=== PATIENT | male | born 1950 | race Caucasian/White ===

== ENCOUNTER 2018-10-28 09:05 | Emergency (ER) | payer MEDICARE, OTHER ==
[~2018-10-28] VITALS: Ht 175.3 cm; Wt 137.3 kg
[~2018-10-28 09:05] MED LIST: ADVIL200 MG PO; ASPIRIN 32325 MG/TAB PO; COZAAR 25MG25 MG/TAB PO; DOXYCYCLINE 10100 MG PO; GLUCOPHAGE500 MG/TAB PO; LANTUS100 U/ML SC; LEVAQUIN 5500 MG/TA1 PO; LORTAB 5/500 501 TAB PO; MOTRIN 200200 MG/TAB PO; NEURONTIN300 MG/CAP PO; NOVOLOG 100U100 U/M1 SC; TOPROL XL 50MG50 MG PO; UNABLE; ZYLOPRIM 300MG300 MG PO
[2018-10-28 09:39] LABS: COLLECTION METHOD CLEAN CATCH
[2018-10-28 09:59] LABS: BASO # 0.1 (0.0-0.2); BASO % 0.7 % (0.0-2.0); EOS # 0.2 (0.0-0.7); EOS % 2.1 % (0-4.0); GRAN # 7.6 (1.4-6.5); GRAN % 71.3 % (42.2-75.2); HEMATOCRIT 39.3 % (42.0-52.0); HEMOGLOBIN 13.6 g/dl (13.5-18.0); LYMPH % 18.5 % (20.0-51.0); MEAN CELL VOLUME 90 fl (80.0-100.0); MEAN CORPUSCULAR HEMOGLOBIN 31 pg (27.0-31.0); MEAN CORPUSCULAR HGB CONC 35 g/dl (33.0-37.0); MEAN PLATELET VOLUME 10.4 fl (7.4-10.4); MONO # 0.7 (0.1-0.6); PLATELET COUNT 213 K/mm3 (130-400); RED BLOOD COUNT 4.37 M/mm3 (4.20-5.60); REDCELL DISTRIBUTION WIDTH-CV 12.7 % (11.5-14.5)
[2018-10-28 09:59] LABS: PH 5 (5-8); URINE APPEARANCE Cloudy; URINE BACTERIA Rare /hpf; URINE BILIRUBIN Negative (NEGATIVE); URINE BLOOD 3+ (NEGATIVE); URINE COLOR Yellow; URINE GLUCOSE Negative (NEGATIVE); URINE KETONE Negative (NEGATIVE); URINE LEUKOCYTE ESTERASE 3+ (NEGATIVE); URINE NITRATE Positive (NEGATIVE); URINE PROTEIN(semi-quant) 2+ (NEGATIVE); URINE RBC >50 /hpf; URINE UROBILINOGEN Negative (NEGATIVE)
[2018-10-28 10:12] LABS: ALBUMIN 4.4 gm/dL (3.5-5.0); BILIRUBIN,TOTAL 0.4 mg/dL (0.0-1.0); C-REACTIVE PROTEIN 6.5 mg/dL (0.0-0.9); CALCIUM 9.8 mg/dL (8.4-10.2); CREATININE, serum 1.5 (0.66-1.25); TOTAL PROTEIN 7.8 gm/dL (6.4-8.2)
[2018-10-28] MEDS ORDERED: OMNICEF 300MG300 MG PO (11:20)
[2018-10-28] MEDS ORDERED: ZOFRAN 4MG T4 MG/TAB PO (11:27)
[2018-10-28 11:41] VITALS: BP 101/61; PULSE 69; TEMP 99
== END 2018-10-28 11:50 | disposition home or self-care (01) ==
LOC: COL.ER 09:05
PROVIDERS: Emergency Medicine
DX: N12 Tubulo-interstitial nephritis, not specified as acute or chronic (principal); E11.9 Type 2 diabetes mellitus without complications; I10 Essential (primary) hypertension; Z79.4 Long term (current) use of insulin
CPT/HCPCS: J0696; J1170; J1885; J2405; J7030; Q9967

== ENCOUNTER 2018-11-29 06:30 | Day surgery (SDC) | payer MEDICARE, OTHER ==
[~2018-11-29] VITALS: Ht 177.8 cm; Wt 136.1 kg
[~2018-11-29 06:30] MED LIST changes: +OMNICEF 300MG300 MG PO; +ZOFRAN 4MG T4 MG/TAB PO
[2018-11-29 06:56] VITALS: BP 134/80; PULSE 57; TEMP 97.6
[2018-11-29] MEDS ORDERED: NORVASC 5MG5 MG/TAB PO (07:16)
[2018-11-29] MEDS ORDERED: LOPRESSOR 225 MG/TAB PO (07:17)
[2018-11-29] MEDS ORDERED: PRAVACHOL80 MG PO (07:18)
[2018-11-29] MEDS ORDERED: MOTRIN 800800 MG/TAB PO (07:19)
[2018-11-29] MEDS ORDERED: COZAAR100 MG PO (07:21)
[2018-11-29] MEDS ORDERED: MULTI VITAMINS1 TAB PO (07:22)
[2018-11-29] MEDS ORDERED: BENADRYL25 M2 PO (07:23)
--- NOTE | 2018-11-29 07:47 | NUR ---
0745-DR. TEE IN ROOM DISCUSSING PROCEDURE. PT CONTINUES TO DENY QUESTIONS/CONCERNS. 0747-NURSE IN ROOM FOR PT, PT AMBULATES TO CART WITH NURSE.
[2018-11-29 08:55] VITALS: BP 134/82; PULSE 56
--- NOTE | 2018-11-29 08:55 | NUR ---
TO BAY3 PER CART FROM ENDOSCOPY. AMBULATED TO RECLINER WITH ASSIST AND TOLERATED WELL. ALERT ORIENTED X3, TALKING TO STAFF AND .
[2018-11-29 09:00] VITALS: BP 114/73; PULSE 58
--- NOTE | 2018-11-29 09:00 | NUR ---
DR TEE TALKED TO PRIOR TO PATIENT RETURNING TO . PATIENT RECEIVED OJ.
[2018-11-29 09:15] VITALS: BP 123/75; PULSE 55
--- NOTE | 2018-11-29 09:15 | NUR ---
DRANK 100% OF OJ. RECEIVED VANILLA PUDDING.
[2018-11-29 09:30] VITALS: BP 133/81; PULSE 53
--- NOTE | 2018-11-29 09:30 | NUR ---
ATE 100% AND TOLERATED WELL. RECEIVED DISCHARGE INSTRUCTIONS AND VERBALIZED UNDERSTANDING. AT BEDSIDE. DISCONTINUED IV AND INT- CATHETER INTACT.
[2018-11-29 09:45] VITALS: BP 128/81; PULSE 56
--- NOTE | 2018-11-29 09:45 | NUR ---
DISCHARGED PER WC BY NURSING STAFF TO PRIVATE CAR IN CARE OF -[facility].
== END 2018-11-29 09:59 | disposition home or self-care (01) ==
LOC: SDCO 06:30
DX: Z12.11 Encounter for screening for malignant neoplasm of colon (principal); D12.3 Benign neoplasm of transverse colon; D12.5 Benign neoplasm of sigmoid colon; K57.30 Diverticulosis of large intestine without perforation or abscess without bleeding; I10 Essential (primary) hypertension; E11.9 Type 2 diabetes mellitus without complications; E78.00 Pure hypercholesterolemia, unspecified; G47.33 Obstructive sleep apnea (adult) (pediatric); M19.90 Unspecified osteoarthritis, unspecified site; M10.9 Gout, unspecified; Z79.4 Long term (current) use of insulin; Z85.818 Personal history of malignant neoplasm of other sites of lip, oral cavity, and pharynx; Z96.653 Presence of artificial knee joint, bilateral; Z83.3 Family history of diabetes mellitus; Z88.8 Allergy status to other drugs, medicaments and biological substances; Z88.0 Allergy status to penicillin
CPT/HCPCS: OP; J2704; J7030

== ENCOUNTER 2019-04-08 06:46 | Emergency (ER) | payer MEDICARE, OTHER ==
[~2019-04-08] VITALS: Ht 175.3 cm; Wt 138.6 kg
[~2019-04-08 06:46] MED LIST changes: +BENADRYL25 M2 PO; +COZAAR100 MG PO; +LOPRESSOR 225 MG/TAB PO; +MOTRIN 800800 MG/TAB PO; +MULTI VITAMINS1 TAB PO; +NORVASC 5MG5 MG/TAB PO; +PRAVACHOL80 MG PO
[2019-04-08 07:19] VITALS: TEMP 98.4
[2019-04-08 08:13] LABS: COLLECTION METHOD CLEAN CATCH
[2019-04-08 08:19] LABS: BASO # 0.1 (0.0-0.2); BASO % 0.8 % (0.0-2.0); EOS # 0.3 (0.0-0.7); EOS % 2.3 % (0-4.0); GRAN # 8.9 (1.4-6.5); HEMATOCRIT 40.3 % (42.0-52.0); HEMOGLOBIN 13.6 g/dl (13.5-18.0); LYMPH # 3.1 (1.2-3.4); LYMPH % 23.3 % (20.0-51.0); MEAN CELL VOLUME 90 fl (80.0-100.0); MEAN CORPUSCULAR HEMOGLOBIN 30 pg (27.0-31.0); MEAN CORPUSCULAR HGB CONC 34 g/dl (33.0-37.0); MEAN PLATELET VOLUME 10.2 fl (7.4-10.4); MONO # 0.8 (0.1-0.6); MONO % 6.1 % (1.7-9.3); PLATELET COUNT 219 K/mm3 (130-400); RED BLOOD COUNT 4.48 M/mm3 (4.20-5.60); REDCELL DISTRIBUTION WIDTH-CV 13.1 % (11.5-14.5)
[2019-04-08 08:27] LABS: ALBUMIN 4.3 gm/dL (3.5-5.0); BILIRUBIN,TOTAL 0.5 mg/dL (0.0-1.0); CREATININE, serum 1.99 (0.66-1.25); TOTAL PROTEIN 7.5 gm/dL (6.4-8.2)
[2019-04-08 08:30] LABS: MUCOUS Present /lpf; PH 5 (5-8); SQUAMOUS EPITHELIAL None Seen /hpf; URINE APPEARANCE Cloudy; URINE BACTERIA Occasional /hpf; URINE BILIRUBIN Negative (NEGATIVE); URINE BLOOD 1+ (NEGATIVE); URINE COLOR Yellow; URINE GLUCOSE Negative (NEGATIVE); URINE KETONE Negative (NEGATIVE); URINE LEUKOCYTE ESTERASE 3+ (NEGATIVE); URINE NITRATE Negative (NEGATIVE); URINE PROTEIN(semi-quant) 1+ (NEGATIVE); URINE RBC 20-50 /hpf
[2019-04-08] MEDS ORDERED: CIPRO 500MG TA500 MG PO ×2 (08:56)
[2019-04-08] MEDS ORDERED: OMNICEF 300MG300 MG PO (09:00)
[2019-04-08 09:44] VITALS: BP 108/73; PULSE 64
== END 2019-04-08 09:44 | disposition home or self-care (01) ==
LOC: COL.ER 06:46
PROVIDERS: Emergency Medicine
DX: N12 Tubulo-interstitial nephritis, not specified as acute or chronic (principal); E11.9 Type 2 diabetes mellitus without complications; I10 Essential (primary) hypertension; E78.5 Hyperlipidemia, unspecified; M10.9 Gout, unspecified; Z87.442 Personal history of urinary calculi; Z79.4 Long term (current) use of insulin
CPT/HCPCS: J0696; J2270; J2405; J7030

== ENCOUNTER 2020-07-20 07:23 | Emergency (ER) | payer MEDICARE, OTHER ==
[~2020-07-20] VITALS: Ht 175.3 cm; Wt 136.4 kg
[~2020-07-20 07:23] MED LIST changes: +CIPRO 500MG TA500 MG PO
[2020-07-20 07:42] VITALS: TEMP 98.8
[2020-07-20 08:03] LABS: BASO # 0.1 (0.0-0.2); BASO % 0.4 % (0.0-2.0); EOS % 0.2 % (0-4.0); GRAN # 9.5 (1.4-6.5); GRAN % 83.2 % (42.2-75.2); HEMATOCRIT 41.3 % (42.0-52.0); HEMOGLOBIN 14.1 g/dl (13.5-18.0); LYMPH % 8.8 % (20.0-51.0); MEAN CELL VOLUME 90 fl (80.0-100.0); MEAN CORPUSCULAR HEMOGLOBIN 31 pg (27.0-31.0); MEAN CORPUSCULAR HGB CONC 34 g/dl (33.0-37.0); MEAN PLATELET VOLUME 10.3 fl (7.4-10.4); MONO # 0.8 (0.1-0.6); MONO % 6.9 % (1.7-9.3); PLATELET COUNT 185 K/mm3 (130-400); RED BLOOD COUNT 4.58 M/mm3 (4.20-5.60); REDCELL DISTRIBUTION WIDTH-CV 13.1 % (11.5-14.5)
[2020-07-20 08:29] LABS: ALBUMIN 4.3 gm/dL (3.5-5.0); BILIRUBIN,TOTAL 0.6 mg/dL (0.0-1.0); C-REACTIVE PROTEIN 6.3 mg/dL (0.0-0.9); CALCIUM 9.6 mg/dL (8.4-10.2); CREATININE, serum 1.73 (0.66-1.25); POTASSIUM 4.3 mmol/L (3.4-5.0); TOTAL PROTEIN 7.6 gm/dL (6.4-8.2)
[2020-07-20 09:46] LABS: COLLECTION METHOD CLEAN CATCH
[2020-07-20 09:54] LABS: MUCOUS Present /lpf; PH 5 (5-8); SQUAMOUS EPITHELIAL 0-2 /hpf; URINE APPEARANCE Cloudy; URINE BACTERIA Moderate /hpf; URINE BILIRUBIN Negative (NEGATIVE); URINE BLOOD 2+ (NEGATIVE); URINE COLOR Yellow; URINE GLUCOSE Negative (NEGATIVE); URINE KETONE Negative (NEGATIVE); URINE LEUKOCYTE ESTERASE 3+ (NEGATIVE); URINE NITRATE Positive (NEGATIVE); URINE PROTEIN(semi-quant) 2+ (NEGATIVE); URINE RBC 20-50 /hpf; URINE UROBILINOGEN Negative (NEGATIVE)
[2020-07-20 11:26] VITALS: BP 126/76; PULSE 83
[2020-07-20] MEDS ORDERED: CIPRO 500MG TA500 MG PO (11:28)
[2020-07-20] MEDS ORDERED: VITAMIN D31000 I1 PO (17:34)
[2020-07-21] MEDS ORDERED: NORCO 325 MG-51 TAB PO (15:15)
[2020-07-21] MEDS ORDERED: ZOFRAN ODT4 MG PO (15:15)
== END 2020-07-20 11:26 | disposition home or self-care (01) ==
LOC: COL.ER 07:23
PROVIDERS: Family Medicine
DX: N12 Tubulo-interstitial nephritis, not specified as acute or chronic (principal); D72.829 Elevated white blood cell count, unspecified; E11.9 Type 2 diabetes mellitus without complications; I10 Essential (primary) hypertension; Z87.442 Personal history of urinary calculi; Z88.0 Allergy status to penicillin; Z79.4 Long term (current) use of insulin; Z79.899 Other long term (current) drug therapy
CPT/HCPCS: 99239; G0378; J0696; J1200; J1644; J1815; J1885; J2405; J2765; J7030; J7120

== ENCOUNTER 2020-07-20 16:01 | Observation (INO) | payer MEDICARE, OTHER ==
[~2020-07-20] VITALS: Ht 177.8 cm; Wt 136.4 kg
[2020-07-20] MEDS ORDERED: VITAMIN D31000 I1 PO (17:34)
[2020-07-20 18:29] VITALS: BP 107/94; PULSE 92; TEMP 100.9
[2020-07-20 18:33] LABS: ALBUMIN 4.2 gm/dL (3.5-5.0); CALCIUM 9.2 mg/dL (8.4-10.2); CREATININE, serum 1.71 (0.66-1.25); PHOSPHOROUS 2.7 mg/dL (2.5-4.5); POTASSIUM 4.3 mmol/L (3.4-5.0)
[2020-07-20 19:20] VITALS: BP 136/73; PULSE 90; TEMP 98.8
[2020-07-21 00:06] VITALS: BP 134/67; PULSE 88; TEMP 99.5
[2020-07-21 04:07] VITALS: BP 117/63; PULSE 87; TEMP 98.5
--- NOTE | 2020-07-21 04:46 | NUR ---
Rested off and on this shift. Did complain of a headache unrelieved with tylenol-gave reglan/benadryl per dr order with good results. Did not receive any other pain med. Low grade temp this shift. Has voided without difficulty. Denies any current needs. Call light in reach. will monitor.
[2020-07-21 07:28] LABS: BASO # 0.1 (0.0-0.2); BASO % 0.5 % (0.0-2.0); EOS % 0.3 % (0-4.0); GRAN # 7.6 (1.4-6.5); GRAN % 79.7 % (42.2-75.2); HEMATOCRIT 39.6 % (42.0-52.0); HEMOGLOBIN 13.2 g/dl (13.5-18.0); LYMPH # 1.1 (1.2-3.4); LYMPH % 11.1 % (20.0-51.0); MEAN CELL VOLUME 93 fl (80.0-100.0); MEAN CORPUSCULAR HEMOGLOBIN 31 pg (27.0-31.0); MEAN CORPUSCULAR HGB CONC 33 g/dl (33.0-37.0); MEAN PLATELET VOLUME 10.6 fl (7.4-10.4); MONO # 0.8 (0.1-0.6); MONO % 8.1 % (1.7-9.3); PLATELET COUNT 147 K/mm3 (130-400); RED BLOOD COUNT 4.24 M/mm3 (4.20-5.60); REDCELL DISTRIBUTION WIDTH-CV 13.1 % (11.5-14.5)
[2020-07-21 07:42] LABS: ALBUMIN 3.8 gm/dL (3.5-5.0); CALCIUM 8.6 mg/dL (8.4-10.2); CREATININE, serum 1.43 (0.66-1.25); PHOSPHOROUS 2.5 mg/dL (2.5-4.5); POTASSIUM 4.3 mmol/L (3.4-5.0)
[2020-07-21 08:03] VITALS: BP 116/47; PULSE 87; TEMP 99.7
--- NOTE | 2020-07-21 08:37 | NUR ---
Pt assessment complete. Pt laying in bed upon entry, he is A/O x4. His breathing is even and unlabored on RA. Pt denies SOB. Reports headache this morning 05/13, PRN Tylenol administered. Pain to L side of head. Denies N/V at this time. No dysuria, but reports frequency. Denies blood in urine. Denies any back pain. IVF infusing without issues. No needs at this time. Call light within reach.
--- NOTE | 2020-07-21 09:27 | NUR ---
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
[2020-07-21 11:49] VITALS: BP 122/74; PULSE 78; TEMP 98.2
--- NOTE | 2020-07-21 15:00 | NUR ---
Pt ate and took abx without issues. Feels much better.
[2020-07-21] MEDS ORDERED: ZOFRAN ODT4 MG PO (15:15)
[2020-07-21] MEDS ORDERED: NORCO 325 MG-51 TAB PO (15:15)
--- NOTE | 2020-07-21 16:10 | NUR ---
Discharge paperwork and instructions reviewed with patient. All questions answered at this time. IV to Lhand D/c'd catheter tip intact.
== END 2020-07-21 16:15 | disposition home or self-care (01) ==
LOC: COL.ER 16:01 → MEDICAL 16:32
PROVIDERS: ADMIT Emergency Medicine
DX: N12 Tubulo-interstitial nephritis, not specified as acute or chronic (principal); N20.0 Calculus of kidney; A41.9 Sepsis, unspecified organism; M10.9 Gout, unspecified; E78.5 Hyperlipidemia, unspecified; Z88.0 Allergy status to penicillin; Z88.8 Allergy status to other drugs, medicaments and biological substances; Z79.899 Other long term (current) drug therapy; Z79.4 Long term (current) use of insulin
CPT/HCPCS: 99239; G0378; J0696; J1200; J1644; J1815; J2405; J2765; J7030

== ENCOUNTER 2022-01-10 07:35 | Day surgery (SDC) | payer MEDICARE, OTHER ==
[~2022-01-10] VITALS: Ht 177.8 cm; Wt 141.0 kg
[~2022-01-10 07:35] MED LIST changes: +NORCO 325 MG-51 TAB PO; -NOVOLOG 100U100 U/M1 SC; +NOVOLOG 100U100 U/M1 SQ; +VITAMIN D31000 I1 PO; +ZOFRAN ODT4 MG PO
[2022-01-10] MEDS ORDERED: COZAAR100 MG PO (09:07)
[2022-01-10 09:33] VITALS: BP 135/99; PULSE 61; TEMP 97.7
--- NOTE | 2022-01-10 09:44 | NUR ---
BG is checked post procedure and is 48. He is alert and oriented and denies symptoms of hypoglycemia. He is given 8 oz of juice, which he drinks. Along with a peanut butter sandwich. His juice is refilled. Will recheck BG in 15 minutes.
[2022-01-10 09:45] VITALS: BP 142/79; PULSE 65
[2022-01-10 09:46] VITALS: BP 135/82; PULSE 65; TEMP 97
[2022-01-10 10:00] VITALS: BP 137/82; PULSE 54
--- NOTE | 2022-01-10 10:08 | NUR ---
BG was rechecked and is 76 after juice and a PB sandwich. Mitch Nixon CRNA is notified and no further orders are received. The patient is able to check BG at home and verbalizes that he will go home and eat lunch and recheck his blood sugar throughout the day today.
--- NOTE | 2022-01-10 10:09 | NUR ---
Dr. Garcia comes to the bedside and sees the patient at this time.
--- NOTE | 2022-01-10 10:19 | NUR ---
Patient has met discharge criteria. DIscharge instructions are discussed. He denies any questions and verbalizes understanding. PIV is removed with catheter intact and hemostasis achieved. He changes to his clothing independently. He is escorted to the exit via wheelchair by staff and discharged to the care of his , who drives him home in a private vehicle at 1019.
== END 2022-01-10 10:19 | disposition home or self-care (01) ==
LOC: SDCO 07:35
DX: Z12.11 Encounter for screening for malignant neoplasm of colon (principal); D12.5 Benign neoplasm of sigmoid colon; I10 Essential (primary) hypertension; E11.9 Type 2 diabetes mellitus without complications; Z79.4 Long term (current) use of insulin; Z79.899 Other long term (current) drug therapy
CPT/HCPCS: J2704; J7120